=== PATIENT | female | born 1985 | race Caucasian/White ===

== ENCOUNTER 2017-10-26 05:32 | Inpatient (IN) | payer BC, OTHER ==
[2017-10-26] MEDS ORDERED: Meropenem 500 MG in Sodium Chloride 0.9% 50 ML IV ONE (06:00)
[2017-10-26] MEDS ORDERED: Acetaminophen 500 MG Tab PO ONE (06:00)
[2017-10-26] MEDS ORDERED: Dextrose 5%-Lactated Ringers 1,000 ML IV SCH (06:00)
[2017-10-26] MEDS ORDERED: Celecoxib 200 MG Cap PO ONE (06:00)
[2017-10-26] MEDS ORDERED: Bupivacaine 0.5%/EPINEPHrine 1:200,000 50 ML MDV ONE (06:56)
[2017-10-26] MEDS ORDERED: Albuterol/Ipratropium 3.0-0.5 MG/3 ML Neb Soln NEB ONE (07:00)
[2017-10-26] MEDS ORDERED: Glycopyrrolate 0.2 MG/ML 5 ML MDV ONE (07:01)
[2017-10-26] MEDS ORDERED: Succinylcholine 200 MG/10 ML MDV ONE (07:01)
[2017-10-26] MEDS ORDERED: Propofol 200 MG/20 ML SDV ONE (07:01)
[2017-10-26] MEDS ORDERED: Ondansetron 4 MG/2 ML SDV ONE (07:01)
[2017-10-26] MEDS ORDERED: Dexamethasone 4 MG/ML SDV ONE (07:01)
[2017-10-26] MEDS ORDERED: Neostigmine Methylsulfate 1 MG/ML 5 ML Syringe ONE (07:01)
[2017-10-26] MEDS ORDERED: Rocuronium 50 MG/5 ML Vial ONE (07:01)
[2017-10-26] MEDS ORDERED: HYDROmorphone/Normal Saline 15 MG/30 ML PCA IV PRN (07:44)
[2017-10-26] MEDS ORDERED: Naloxone 0.4 MG/ML SDV IV PRN (07:47)
[2017-10-26] MEDS ORDERED: Lactated Ringers 1,000 ML ONE (08:14)
[2017-10-26] MEDS ORDERED: Atropine 0.4 MG/ML SDV ONE (08:52)
[2017-10-26] MEDS ORDERED: hydrOXYzine HCl 100 MG/2 ML SDV IM ONE (09:08)
[2017-10-26] MEDS ORDERED: Albuterol/Ipratropium 3.0-0.5 MG/3 ML Neb Soln INH PRN (09:48)
[2017-10-26] MEDS ORDERED: Ondansetron 4 MG/2 ML SDV IV PRN (09:48)
[2017-10-26] MEDS ORDERED: hydrOXYzine HCl 100 MG/2 ML SDV IM PRN (09:50)
[2017-10-26] MEDS ORDERED: hydrOXYzine HCl 25 MG Tab PO PRN (09:50)
[2017-10-26] MEDS ORDERED: Ketorolac 60 MG/2 ML SDV IM ONE (10:00)
[2017-10-26] MEDS ORDERED: Cyclobenzaprine 10 MG Tab PO ONE (10:00)
[2017-10-26] MEDS: Albuterol/Ipratropium 3.0-0.5 MG/3 ML Neb Soln INH SCH ×3 (11:22→20:46)
[2017-10-26] MEDS: Dextrose 5%-Lactated Ringers 1,000 ML IV SCH ×2 (15:22→21:49)
[2017-10-26] MEDS: Meropenem 500 MG in Sodium Chloride 0.9% 50 ML IV SCH (16:05)
[2017-10-26] MEDS ORDERED: Benzocaine/Cetylpyridinium/Menthol Lozenge MUCMEM PRN (19:44)
[2017-10-26] MEDS: Bisacodyl 5 MG Tab PO SCH (20:40)
[2017-10-26] MEDS: Cyclobenzaprine 10 MG Tab PO PRN (21:49)
[2017-10-27] MEDS: Meropenem 500 MG in Sodium Chloride 0.9% 50 ML IV SCH ×3 (00:18→15:08)
[2017-10-27] MEDS: Dextrose 5%-Lactated Ringers 1,000 ML IV SCH (04:04)
[2017-10-27] MEDS: Cyclobenzaprine 10 MG Tab PO PRN ×3 (04:21→18:24)
[2017-10-27] MEDS: Albuterol/Ipratropium 3.0-0.5 MG/3 ML Neb Soln INH SCH ×4 (08:45→20:43)
[2017-10-27] MEDS ORDERED: Dextrose 5%-Lactated Ringers 1,000 ML IV SCH (09:00)
[2017-10-27] MEDS: Acetaminophen/oxyCODONE 325-5 MG Tab PO PRN ×3 (09:02→20:11)
[2017-10-27] MEDS: FLUoxetine 20 MG Cap PO SCH (09:04)
[2017-10-27] MEDS: Bisacodyl 5 MG Tab PO SCH ×2 (09:04→20:43)
[2017-10-27] MEDS: Enoxaparin 40 MG/0.4 ML Syringe SUBCUT SCH (09:06)
[2017-10-27] MEDS: ALLEGRA D PO SCH (10:59)
--- NOTE | 2017-10-27 15:12 | PCM.SURGPN ---
- General Info Date of Service: 10/27/17 Date of Surgery/Procedure: 10/26/17 POD#: 1 Post-Op Diagnosis: Appendicitis Functional Status: Reports: Pain Controlled, Tolerating Diet, Ambulating, Urinating, Incentive Spirometry - Review of Systems General: Reports: No Symptoms HEENT: Reports: No Symptoms Pulmonary: Reports: No Symptoms Cardiovascular: Reports: No Symptoms Gastrointestinal: Reports: Other (Diffuse cramping of upper and lower abdomen) Genitourinary: Reports: No Symptoms Musculoskeletal: Reports: No Symptoms Skin: Reports: No Symptoms Neurological: Reports: No Symptoms Psychiatric: Reports: No Symptoms - Patient Data Vitals - Most Recent: Last Vital Signs Temp 97.1 F 10/27/17 11:42 Pulse 78 10/27/17 11:46 Resp 18 10/27/17 11:42 BP 104/64 10/27/17 11:42 Pulse Ox 97 10/27/17 11:46 Weight - Most Recent: 143 lb 0.01 oz I&O - Last 24 Hours: Intake & Output 10/27/17 10/27/17 10/27/17 06:59 14:59 22:59 Intake Total 50 960 Output Total 925 1100 Balance -875 -140 Med Orders - Current: Current Medications Albuterol/Ipratropium (Duoneb 3.0-0.5 Mg/3 Ml) 3 ml INH QIDRT [facility] Last Admin: 10/27/17 15:06 Dose: 3 ml Albuterol/Ipratropium (Duoneb 3.0-0.5 Mg/3 Ml) 3 ml INH ASDIRECTED PRN PRN Reason: Shortness of Breath Benzocaine/Menthol (Cepacol Sore Throat) 1 lozenge MUCMEM Q1H PRN PRN Reason: Sore Throat Bisacodyl (Dulcolax) 10 mg PO BID [facility] Last Admin: 10/27/17 09:04 Dose: 10 mg Cyclobenzaprine HCl (Flexeril) 10 mg PO Q6H PRN PRN Reason: MUSCLE SPASM Last Admin: 10/27/17 11:49 Dose: 10 mg Enoxaparin Sodium (Lovenox) 40 mg SUBCUT DAILY [facility] Last Admin: 10/27/17 09:06 Dose: 40 mg Fluoxetine HCl (Prozac) 20 mg PO DAILY [facility] Last Admin: 10/27/17 09:04 Dose: 20 mg Hydroxyzine HCl (Vistaril) 50 mg IM Q4H PRN PRN Reason: PAIN Hydroxyzine HCl (Atarax) 100 mg PO Q4H PRN PRN Reason: PAIN Meropenem 500 mg/ Sodium (Chloride) 50 mls @ 100 mls/hr IV Q8H [facility] Last Admin: 10/27/17 09:02 Dose: 100 mls/hr Dextrose/Lactated Ringer's (Dextrose 5%-Lactated Ringers) 1,000 mls @ 100 mls/ hr IV ASDIRECTED [facility] Renee-D 24 Hour (Tablet (Ptom)) 0 tab PO DAILY [facility] Last Admin: 10/27/17 10:59 Dose: Not Given Ondansetron HCl (Zofran) 4 mg IV Q4H PRN PRN Reason: N/V Oxycodone/Acetaminophen (Percocet 325-5 Mg) 1 - 2 tab PO Q4H PRN PRN Reason: PAIN Last Admin: 10/27/17 09:02 Dose: 1 tab Senna/Docusate Sodium (Senna Plus) 2 tab PO BID [facility] Last Admin: 10/27/17 09:05 Dose: 2 tab Discontinued Medications Acetaminophen (Tylenol Extra Strength) 1,000 mg PO ONETIME ONE Stop: 10/26/17 06:01 Last Admin: 10/26/17 06:13 Dose: 1,000 mg Albuterol/Ipratropium (Duoneb 3.0-0.5 Mg/3 Ml) 3 ml NEB ONETIME ONE Stop: 10/26/17 07:01 Last Admin: 10/26/17 07:02 Dose: 3 ml Atropine Sulfate (Atropine) Confirm Administered Dose 0.4 mg .ROUTE .STK-MED ONE Stop: 10/26/17 08:53 Bupivacaine HCl/Epinephrine Bitart (Marcaine 0.5%/Epinephrine 1:200,000) Confirm Administered Dose 50 ml .ROUTE .STK-MED ONE Stop: 10/26/17 06:57 Last Admin: 10/26/17 09:12 Dose: 15 ml Celecoxib (Celebrex) 200 mg PO ONETIME ONE Stop: 10/26/17 06:01 Last Admin: 10/26/17 06:13 Dose: 200 mg Cyclobenzaprine HCl (Flexeril) 10 mg PO ONETIME ONE Stop: 10/26/17 10:01 Last Admin: 10/26/17 09:57 Dose: 10 mg Dexamethasone (Dexamethasone) Confirm Administered Dose 4 mg .ROUTE .STK-MED ONE Stop: 10/26/17 07:02 Fentanyl Citrate (Fentanyl) Confirm Administered Dose 500 mcg .ROUTE .STK-MED ONE Stop: 10/26/17 07:02 Glycopyrrolate (Robinul) Confirm Administered Dose 1 mg .ROUTE .STK-MED ONE Stop: 10/26/17 07:02 Hydromorphone HCl (Dilaudid Teacher Emotionally Impaired 15 Mg In Ns 30 Ml) 0 mg IV ASDIRECTED PRN; Protocol PRN Reason: Pain Last Admin: 10/26/17 07:59 Dose: 0.3 mg Hydroxyzine HCl (Vistaril) 0 mg IM ONETIME ONE Stop: 10/26/17 09:09 Last Admin: 10/26/17 09:13 Dose: 100 mg Dextrose/Lactated Ringer's (Dextrose 5%-Lactated Ringers) 1,000 mls @ 100 mls/ hr IV ASDIRECTED [facility] Last Admin: 10/26/17 07:02 Dose: 100 mls/hr Meropenem 500 mg/ Sodium (Chloride) 50 mls @ 100 mls/hr IV ONETIME ONE Stop: 10/26/17 06:29 Last Admin: 10/26/17 08:00 Dose: 100 mls/hr Lactated Ringer's (Ringers, Lactated) Confirm Administered Dose 1,000 mls @ as directed .ROUTE .STK-MED ONE Stop: 10/26/17 08:15 Dextrose/Lactated Ringer's (Dextrose 5%-Lactated Ringers) 1,000 mls @ 175 mls/ hr IV ASDIRECTED [facility] Last Admin: 10/27/17 04:04 Dose: 175 mls/hr Ketorolac Tromethamine (Toradol) 60 mg IM ONETIME ONE Stop: 10/26/17 10:01 Last Admin: 10/26/17 09:57 Dose: 60 mg Naloxone HCl (Narcan) 0.1 mg IV ASDIRECTED PRN PRN Reason: decreased respiratory rate Neostigmine Methylsulfate (Neostigmine) Confirm Administered Dose 5 mg .ROUTE .STK-MED ONE Stop: 10/26/17 07:02 Ondansetron HCl (Zofran) Confirm Administered Dose 4 mg .ROUTE .STK-MED ONE Stop: 10/26/17 07:02 Propofol (Diprivan 20 Ml) Confirm Administered Dose 200 mg .ROUTE .STK-MED ONE Stop: 10/26/17 07:02 Rocuronium Clymer (Zemuron) Confirm Administered Dose 50 mg .ROUTE .STK-MED ONE Stop: 10/26/17 07:02 Succinylcholine Chloride (Quelicin) Confirm Administered Dose 200 mg .ROUTE .STK -MED ONE Stop: 10/26/17 07:02 - Exam Wound/Incisions: Healing Well, Dressing Dry and Intact General: Alert, Oriented HEENT: Pupils Equal Neck: Supple Lungs: Clear to Auscultation, Normal Respiratory Effort Cardiovascular: Regular Rate, Regular Rhythm GI/Abdominal Exam: Other (slightly hypoactive bowel sounds) Extremities: Normal Inspection, Normal Range of Motion, Non-Tender, No Pedal Edema, Normal Capillary Refill Skin: Warm, Dry, Intact Neurological: No New Focal Deficit Psy/Mental Status: Alert, Normal Affect, Normal Mood - Problem List Review Problem List Initiated/Reviewed/Updated: Yes - My Orders Last 24 Hours: Active Orders 24 hr Category Date Time Status May Shower [RC] ASDIRECTED Care 10/27/17 08:33 Active Regular Diet [DIET] Diet 10/27/17 Breakfast Active Acetaminophen/oxyCODONE [Percocet 325-5 MG] Med 10/27/17 08:57 Active 1 - 2 tab PO Q4H PRN Benzocaine/Cetylpyrd/Menthol [Cepacol Sore Throat] Med 10/26/17 19:44 Active 1 lozenge MUCMEM Q1H PRN Bisacodyl [Dulcolax] Med 10/26/17 21:00 Active 10 mg PO BID Cyclobenzaprine [Flexeril] Med 10/26/17 16:00 Active 10 mg PO Q6H PRN Dextrose 5%-Lactated Ringers 1,000 ml Med 10/27/17 09:00 Active IV ASDIRECTED Enoxaparin [Lovenox] Med 10/27/17 09:00 Active 40 mg SUBCUT DAILY FLUoxetine [PROzac] Med 10/27/17 09:00 Active 20 mg PO DAILY Fexofenadine/Pseudoephedrine [Renee-D 24 Hour Tablet] Med 10/27/17 09:00 Active 0 tab PO DAILY Meropenem [Merrem] 500 mg Med 10/26/17 16:00 Active Sodium Chloride 0.9% [Normal Saline] 50 ml IV Q8H Medication Orders Albuterol/Ipratropium (Duoneb 3.0-0.5 Mg/3 Ml) 3 ml INH QIDRT [facility] Last Admin: 10/27/17 15:06 Dose: 3 ml Admin: 10/27/17 11:46 Dose: 3 ml Admin: 10/27/17 08:45 Dose: 3 ml Admin: 10/26/17 20:46 Dose: 3 ml Admin: 10/26/17 15:05 Dose: 3 ml Admin: 10/26/17 11:22 Dose: 3 ml Albuterol/Ipratropium (Duoneb 3.0-0.5 Mg/3 Ml) 3 ml INH ASDIRECTED PRN PRN Reason: Shortness of Breath Benzocaine/Menthol (Cepacol Sore Throat) 1 lozenge MUCMEM Q1H PRN PRN Reason: Sore Throat Bisacodyl (Dulcolax) 10 mg PO BID [facility] Last Admin: 10/27/17 09:04 Dose: 10 mg Admin: 10/26/17 20:40 Dose: 10 mg Cyclobenzaprine HCl (Flexeril) 10 mg PO Q6H PRN PRN Reason: MUSCLE SPASM Last Admin: 10/27/17 11:49 Dose: 10 mg Admin: 10/27/17 04:21 Dose: 10 mg Admin: 10/26/17 21:49 Dose: 10 mg Enoxaparin Sodium (Lovenox) 40 mg SUBCUT DAILY [facility] Last Admin: 10/27/17 09:06 Dose: 40 mg Fluoxetine HCl (Prozac) 20 mg PO DAILY [facility] Last Admin: 10/27/17 09:04 Dose: 20 mg Hydroxyzine HCl (Vistaril) 50 mg IM Q4H PRN PRN Reason: PAIN Hydroxyzine HCl (Atarax) 100 mg PO Q4H PRN PRN Reason: PAIN Meropenem 500 mg/ Sodium (Chloride) 50 mls @ 100 mls/hr IV Q8H [facility] Last Admin: 10/27/17 09:02 Dose: 100 mls/hr Admin: 10/27/17 00:18 Dose: 100 mls/hr Admin: 10/26/17 16:05 Dose: 100 mls/hr Dextrose/Lactated Ringer's (Dextrose 5%-Lactated Ringers) 1,000 mls @ 100 mls/ hr IV ASDIRECTED [facility] Renee-D 24 Hour (Tablet (Ptom)) 0 tab PO DAILY [facility] Last Admin: 10/27/17 10:59 Dose: Ondansetron HCl (Zofran) 4 mg IV Q4H PRN PRN Reason: N/V Oxycodone/Acetaminophen (Percocet 325-5 Mg) 1 - 2 tab PO Q4H PRN PRN Reason: PAIN Last Admin: 10/27/17 09:02 Dose: 1 tab Senna/Docusate Sodium (Senna Plus) 2 tab PO BID [facility] Last Admin: 10/27/17 09:05 Dose: 2 tab Admin: 10/26/17 20:40 Dose: 2 tab Admin: 10/26/17 15:21 Dose: 2 tab - Assessment Assessment (Free Text/Narrative):: 10/27/16 Georgette Roberts is a 31yo F POD#1 s/p laparoscopic appendectomy who is doing well today, aside from continued generalized abdominal cramping. Flexeril has been helping with this cramping. She is up and ambulating. Voiding well. Dressing dry and intact with binder on. Was transitioned to regular diet and oral percocet. She can get up and shower today. Expect discharge tomorrow. - Plan Plan (Free Text/Narrative):: -Pain management: switch from IV to oral Percocet -Diet: Change from full liquids to regular diet -Activity: continue ambulating, shower, use incentive spirometer -Abx prophylaxis: continue meropenem
[2017-10-28] MEDS: Meropenem 500 MG in Sodium Chloride 0.9% 50 ML IV SCH ×2 (00:45→07:49)
[2017-10-28] MEDS: Acetaminophen/oxyCODONE 325-5 MG Tab PO PRN ×3 (00:46→10:28)
[2017-10-28] MEDS: Cyclobenzaprine 10 MG Tab PO PRN ×2 (00:46→07:49)
[2017-10-28] MEDS: Albuterol/Ipratropium 3.0-0.5 MG/3 ML Neb Soln INH SCH (07:12)
[2017-10-28] MEDS: Enoxaparin 40 MG/0.4 ML Syringe SUBCUT SCH (09:09)
[2017-10-28] MEDS: FLUoxetine 20 MG Cap PO SCH (09:09)
[2017-10-28] MEDS: Bisacodyl 5 MG Tab PO SCH (09:09)
[2017-10-28] MEDS: ALLEGRA D PO SCH (09:26)
--- NOTE | 2017-10-29 14:14 | PN ---
DATE OF SERVICE: 10/27/2017 The patient has been afebrile with stable vital signs. She is complaining of some cramping in the musculature on the abdominal wall, otherwise, is doing well. No nausea or vomiting overnight. The plan will be to switch her to oral pain medication today, go up to a regular diet, continue the antibiotics, and work on getting the bowels going. She will be able to shower p.r.n. Bashir Manley MD /[id number]
--- NOTE | 2017-10-29 14:23 | DISCH ---
FINAL DIAGNOSES: 1. Subacute appendicitis with inflammatory adherence to base of cecum. 2. History of asthma. OPERATIVE PROCEDURE: Diagnostic laparoscopy with excision of the base of the cecum along with overlying appendix, that was on 10/26/2017. SUMMARY: The patient presents after being seen in [facility] after returning from [facility] and diagnosed with acute appendicitis. The initial plan was to treat her nonoperatively with oral antibiotics. There was some fluid around the appendix at the time, but this was drained. She presents now with more of a smoldering picture with continued abdominal distention and discomfort in the right lower quadrant. At this point, wished to undergo definitive surgical procedure. On the day of admission, the appendectomy was accomplished. The base of the cecum was densely adherent to the appendix and this was excised along with the overlying appendix to provide a more satisfactory staple line. Postoperatively, she is passing some gas. At this point, still mildly distended, but is tolerating the diet. She will be sent home with instructions to finish off her antibiotics that had been started at [facility] and she thinks, has a few Percocet left from that hospitalization. We will give her 40 additional of Percocet 5/325 to take 1 to 2 tablets q.4 hours p.r.n., was also taking some Flexeril 10 mg p.o. q.6 hours p.r.n. for muscle spasm, #30 with one refill and Dulcolax oral tablets and senna on a scheduled basis until bowels get moving. She should be following up with Dr. Manley at [facility] on 11/04/2017.
--- NOTE | 2017-10-30 14:45 | OR ---
DATE OF PROCEDURE: 10/26/2017 PREOPERATIVE DIAGNOSIS: Subacute appendicitis. POSTOPERATIVE DIAGNOSIS: Subacute appendicitis with inflammatory adherence to the base of cecum. OPERATIVE PROCEDURE: Diagnostic laparoscopy with excision of base of cecum, along with overlying appendix ([id number]). ANESTHESIA: General. PAINTER HELPER: Alejandra Jefferson MS-3. INDICATION FOR PROCEDURE: The patient recently returned from [facility] and was admitted at [facility] for acute appendicitis with periappendiceal fluid collection, where she was treated nonoperatively without intervention in terms of the fluid as well. She continues to have smoldering discomfort, clinically probably a degree of ileus with her abdomen being quite bloated and remaining somewhat tender in the right lower quadrant. Given this, at this point, the patient would like to proceed with an appendectomy and drainage of fluid or abscess as indicated. Potential risks including bleeding, infection, injury to underlying viscera, possible leaks from GI tract closures were reviewed, and the patient wishes to proceed. DETAILS OF PROCEDURE: The patient was taken to the operating room, and after general endotracheal anesthesia was induced, a George catheter was inserted and the abdomen prepped and draped. Three fingerbreadths superior and to the left of the umbilicus, a transverse incision was made and peritoneal cavity entered under direct vision with an Optiview trocar. The peritoneal cavity was inflated to 15 mmHg pressure with CO2 and laparoscope reinserted. No underlying trocar insertion site injuries were seen. Following this, a 12-mm trocar was placed in the left lower quadrant, as well as in the right upper quadrant, and the lower abdomen examined. The patient was noted to have an appendix which was entirely covered with peritoneum which was visible, other than for the very tip, which extended rightwards along the side of the cecum. At this point, there was not any evident periappendiceal fluid collection. The appendix itself had subacute inflammation in appearance but it did not show signs of perforation. The appendix was then freed up of the peritoneal attachments beginning at its tip, using Harmonic scalpel. As this was dissected down, the appendiceal artery and its branches were divided with Harmonic scalpel as well. As one approached the cecum, which was densely adherent in that area and it was felt that heat injury to the cecum would be such that, if the appendectomy alone were accomplished, there might be a weakened staple line at the cecum. Given this, the base of the cecum was mobilized upward and then excised with a AGA purple load, with removal of the specimen containing the base of cecum and appendix through the left lower trocar site. The area of dissection was inspected. The staple line was reinforced with some fibrin sealant, and no drains were felt to be necessary. The trocars were sequentially removed and the fascia closed with 0 Vicryl stitch and skin with a 4-0 Vicryl skin stitch. Dressing was applied. The patient was taken to the recovery room in satisfactory condition. There were no evident complications. Bashir Manley MD /[id number]
== END 2017-10-28 12:15 | disposition home or self-care (01) | DRG 343 ==
LOC: JP.SDSSCHI 05:32 → JP.SDS 05:32 → UNDOADMIN 08:35 → JP.2SS 08:35 → JP.SDSSCHI 08:35 → EDSTATUS 13:30
PROVIDERS: ADMIT Surgery; ATTEND Surgery
PROC: 0DTJ4ZZ Resection of Appendix, Percutaneous Endoscopic Approach (ICD-10-PCS; principal; 2017-10-26)
PROC: 0DBH4ZX Excision of Cecum, Percutaneous Endoscopic Approach, Diagnostic (ICD-10-PCS; 2017-10-26)
DX: K35.89 Other acute appendicitis (principal); J45.909 Unspecified asthma, uncomplicated
CPT/HCPCS: 36415; 80053; 81025; 83735; 84100; 85027; 88304; 94640; 94762; A9270-GY; J0330; J0461; J1100; J1170; J1650; J1885; J2185; J2405; J2704; J2710; J3010; J3410; J7042; J7050; J7120; J7620

== ENCOUNTER 2020-09-02 19:40 | Emergency (ER) | payer BC, OTHER ==
--- NOTE | 2020-09-02 20:18 | EDM.PDOC ---
ED HPI GENERAL MEDICAL PROBLEM - General Chief Complaint: Abdominal Pain Stated Complaint: LOWER L ABDOMINAL PAIN Time Seen by Provider: 09/02/20 20:02 Source of Information: Reports: Patient, Family, RN Notes Reviewed History Limitations: Reports: No Limitations - History of Present Illness INITIAL COMMENTS - FREE TEXT/NARRATIVE: 34-year-old female presents emergency department a complaint of abdominal pain, she estimates she is about 6 weeks intrauterine she is a G1, P0 she states she has had left lower quadrant pain for the last couple of weeks some nausea pain definitely changes with food can be intense but then will wax and wane no fevers no vaginal bleeding no discharge Right Lower Abdomen Pain Score (Numeric/FACES): 3 - Related Data Allergies Allergy/AdvReac Type Severity Reaction Status Date / Time No Known Allergies Allergy Verified 10/23/17 10:41 Home Meds: Home Meds Albuterol [IJD: Ventolin HFA] 1 - 2 puff INH ASDIRECTED PRN 10/23/17 [History] Dicyclomine [Bentyl] 20 mg PO TID PRN 10/23/17 [History] FLUoxetine [PROzac] 20 mg PO DAILY 10/23/17 [History] Fexofenadine/Pseudoephedrine [Renee-D 24 Hour Tablet] 1 tab PO DAILY 10/23/17 [History] Past Medical History HEENT History: Reports: Impaired Vision, Sinusitis Other HEENT History: wears glasses Cardiovascular History: Reports: SOB on Exertion Respiratory History: Reports: Other (See Below) Other Respiratory History: exercise induced asthma 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: Musculoskeletal History: Reports: RA - Infectious Disease History Infectious Disease History: Reports: Chicken Pox - Past Surgical History HEENT Surgical History: Reports: Oral Surgery Cardiovascular Surgical History: Reports: None Respiratory Surgical History: Reports: None GI Surgical History: Reports: Appendectomy Dermatological Surgical History: Reports: None Social & Family History - Family History Cardiac: Reports: Heart Failure, Hypertension Neurological: Reports: Dementia Psychiatric: Reports: Depression Endocrine/Metabolic: Reports: Diabetes, type II Oncologic: Reports: Colon, Lung - Tobacco Use Tobacco Use Status *Q: Never Tobacco User - Caffeine Use Caffeine Use: Reports: Soda - Recreational Drug Use Recreational Drug Use: No ED ROS GENERAL - Review of Systems Review Of Systems: See Below Constitutional: Reports: No Symptoms HEENT: Reports: No Symptoms Respiratory: Reports: No Symptoms Cardiovascular: Reports: No Symptoms GI/Abdominal: Reports: Abdominal Pain, Nausea. Denies: Vomiting : Reports: No Symptoms ED EXAM - Physical Exam Exam: See Below Exam Limited By: No Limitations General Appearance: Alert, WD/WN, No Apparent Distress Respiratory/Chest: No Respiratory Distress GI/Abdominal Exam: Soft, Non-Tender Course - Vital Signs Last Recorded V/S: Last Vital Signs Temp 96.1 F L 09/02/20 19:52 Pulse 82 09/02/20 19:52 Resp 16 09/02/20 19:52 BP 125/78 09/02/20 19:52 Pulse Ox 98 09/02/20 19:52 - Orders/Labs/Meds Orders: Active Orders 24 hr Category Date Time Status OB 1st Tri Sgl 1st Gest [US] Stat Exams 09/02/20 21:20 Taken Labs: Laboratory Tests 09/02/20 09/02/20 09/02/20 Range/Units 20:18 20:28 20:28 WBC 10.5 (4.5-11.0) K/uL RBC 4.30 (3.30-5.50) M/uL Hgb 11.7 L (12.0-15.0) g/dL Hct 36.4 (36.0-48.0) % MCV 85 (80-98) fL MCH 27 (27-31) pg MCHC 32 (32-36) % Plt Count 327 (150-400) K/uL Neut % (Auto) 76 H (36-66) % Lymph % (Auto) 14 L (24-44) % Cavalier % (Auto) 9 H (2-6) % Eos % (Auto) 1 L (2-4) % Baso % (Auto) 0 (0-1) % Sodium (140-148) mmol/L Potassium (3.6-5.2) mmol/L Chloride (100-108) mmol/L Carbon Dioxide (21-32) mmol/L Anion Gap (5.0-14.0) mmol/L BUN (7-18) mg/dL Creatinine (0.6-1.0) mg/dL Est Cr Clr Drug Dosing mL/min Estimated GFR (MDRD) (>60) Glucose (74-106) mg/dL Calcium (8.5-10.1) mg/dL HCG, Quant 58510 H (0-6) mIU/mL Urine Color Yellow (YELLOW) Urine Appearance Clear (CLEAR) Urine pH 5.5 (5.0-8.0) Ur Specific [place] 1.010 (1.008-1.030) Urine Protein Negative (NEGATIVE) mg/dL Urine Glucose (UA) Negative (NEGATIVE) mg/dL Urine Ketones Negative (NEGATIVE) mg/dL Urine Occult Blood Negative (NEGATIVE) Urine Nitrite Negative (NEGATIVE) Urine Bilirubin Negative (NEGATIVE) Urine Urobilinogen 0.2 (0.2-1.0) EU/dL Ur Leukocyte Esterase Negative (NEGATIVE) Urine RBC Not seen (0-5) Urine WBC Not seen (0-5) Ur Epithelial Cells Not seen Urine Bacteria Not seen 09/02/20 Range/Units 20:28 WBC (4.5-11.0) K/uL RBC (3.30-5.50) M/uL Hgb (12.0-15.0) g/dL Hct (36.0-48.0) % MCV (80-98) fL MCH (27-31) pg MCHC (32-36) % Plt Count (150-400) K/uL Neut % (Auto) (36-66) % Lymph % (Auto) (24-44) % Cavalier % (Auto) (2-6) % Eos % (Auto) (2-4) % Baso % (Auto) (0-1) % Sodium 135 L (140-148) mmol/L Potassium 3.8 (3.6-5.2) mmol/L Chloride 102 (100-108) mmol/L Carbon Dioxide 23 (21-32) mmol/L Anion Gap 13.8 (5.0-14.0) mmol/L BUN 10 (7-18) mg/dL Creatinine 0.9 (0.6-1.0) mg/dL Est Cr Clr Drug Dosing 92.91 mL/min Estimated GFR (MDRD) > 60 (>60) Glucose 84 (74-106) mg/dL Calcium 9.0 (8.5-10.1) mg/dL HCG, Quant (0-6) mIU/mL Urine Color (YELLOW) Urine Appearance (CLEAR) Urine pH (5.0-8.0) Ur Specific [place] (1.008-1.030) Urine Protein (NEGATIVE) mg/dL Urine Glucose (UA) (NEGATIVE) mg/dL Urine Ketones (NEGATIVE) mg/dL Urine Occult Blood (NEGATIVE) Urine Nitrite (NEGATIVE) Urine Bilirubin (NEGATIVE) Urine Urobilinogen (0.2-1.0) EU/dL Ur Leukocyte Esterase (NEGATIVE) Urine RBC (0-5) Urine WBC (0-5) Ur Epithelial Cells Urine Bacteria Departure - Departure Time of Disposition: 22:46 Disposition: Home, Self-Care 01 Condition: Fair Clinical Impression: Intrauterine - Discharge Information Instructions: Care Referrals: Deborah Walters CNM [Primary Care Provider] - Forms: ED Department Discharge Additional Instructions: Continue with your vitamins, try stool softeners keep your follow-up appointments with your OB return to the emergency department worsening of condition Sepsis Event Note (ED) - Evaluation Sepsis Screening Result: No Definite Risk - Focused Exam Vital Signs: Vital Signs Temp Pulse Resp BP Pulse Ox 09/02/20 19:52 96.1 F L 82 16 125/78 98 - My Orders Last 24 Hours: My Active Orders 09/02/20 21:20 OB 1st Tri Sgl 1st Gest [US] Stat - Assessment/Plan Last 24 Hours: My Active Orders 09/02/20 21:20 OB 1st Tri Sgl 1st Gest [US] Stat Plan: Assessment Acuity = acute Site and laterality = 6 weeks 4 days intrauterine Etiology = normal Manifestations = none Location of injury = Home Lab values = CBC, BMP within normal limits urinalysis unremarkable Plan Ultrasound did note large amount of stool left lower quadrant area probably related to pain plan is discharged home she has vitamins will follow up with her OB This note was dictated using [employer] voice recognition software please call with any questions on syntax or grammar.
--- NOTE | 2020-09-03 10:01 | US ---
INDICATION: LLQ pain COMPARISON: None FINDINGS: There is a gestational sac within the endometrial cavity. There is a pole. Single live IUP at 6 weeks 4 days based on a crown-rump length of 0.6 cm heart rate: 135 BPM. ADD is 04/24/2021 There is a yolk sac measuring 3 mm Other findings: No free fluid or adnexal mass is seen IMPRESSION: Single live IUP at 6 weeks 4 days MCKENZIE is 04/24/2021
== END 2020-09-02 23:00 | disposition home or self-care (01) ==
LOC: JP.ED 19:40
DX: O99.891 Other specified diseases and conditions complicating pregnancy (principal); R10.31 Right lower quadrant pain; R10.32 Left lower quadrant pain; R11.0 Nausea; Z3A.01 Less than 8 weeks gestation of pregnancy
CPT/HCPCS: 36415; 76801; 76801-26; 80048; 81001; 84702; 85025; 99284-25

== ENCOUNTER 2021-04-12 06:27 | Inpatient (IN) | payer BC ==
[2021-04-12] MEDS ORDERED: Ondansetron 4 MG/2 ML SDV IV PRN (08:11)
[2021-04-12] MEDS ORDERED: Acetaminophen 325 MG Tab PO PRN (08:11)
[2021-04-12] MEDS ORDERED: Sodium Chloride 0.9% 10 ML Syringe FLUSH PRN ×2 (08:11→16:39)
[2021-04-12] MEDS ORDERED: Penicillin G Potassium 5 MILLUNITS in Sodium Chloride 0.9% 100 ML IV ONE (08:30)
--- NOTE | 2021-04-12 09:16 | PCM.LDHP ---
L&D History of Present Illness - General Date of Service: 04/12/21 Admit Problem/Dx: Patient Status Order with Admit Dx/Problem 04/12/21 08:11 Patient Status [ADT] Routine Admission Diagnosis/Problem Admission Diagnosis/Problem - Related Data Allergies/Adverse Reactions: Allergies Allergy/AdvReac Type Severity Reaction Status Date / Time No Known Allergies Allergy Verified 04/12/21 08:45 Home Medications: Home Meds Albuterol [IJD: Ventolin HFA] 1 - 2 puff INH ASDIRECTED PRN 10/23/17 [History] Dicyclomine [Bentyl] 20 mg PO TID PRN 10/23/17 [History] FLUoxetine [PROzac] 20 mg PO DAILY 10/23/17 [History] Fexofenadine/Pseudoephedrine [Renee-D 24 Hour Tablet] 1 tab PO DAILY 10/23/17 [History] Ferrous Sulfate [Iron] 325 mg PO DAILY 04/07/21 [History] Pnv No.103/Folic/Om3s/Fish Oil [ Gummies] 1 tab PO DAILY 04/07/21 [History] Past Medical History HEENT History: Reports: Impaired Vision, Sinusitis Other HEENT History: wears glasses Cardiovascular History: Reports: SOB on Exertion Respiratory History: Reports: Other (See Below) Other Respiratory History: exercise induced asthma [employer] History: Reports: Musculoskeletal History: Reports: RA Hematologic History: Reports: Anemia - Infectious Disease History Infectious Disease History: Reports: Chicken Pox, Meningitis - Past Surgical History HEENT Surgical History: Reports: Oral Surgery Cardiovascular Surgical History: Reports: None Respiratory Surgical History: Reports: None GI Surgical History: Reports: Appendectomy Dermatological Surgical History: Reports: None Social & Family History - Family History Family Medical History: No Pertinent Family History Cardiac: Reports: Heart Failure, Hypertension Neurological: Reports: Dementia Psychiatric: Reports: Depression Endocrine/Metabolic: Reports: Diabetes, type II Oncologic: Reports: Colon, Lung - Tobacco Use Tobacco Use Status *Q: Never Tobacco User - Caffeine Use Caffeine Use: Reports: None - Recreational Drug Use Recreational Drug Use: No H&P Review of Systems - Review of Systems: Review Of Systems: See Below General: Reports: No Symptoms HEENT: Reports: No Symptoms Pulmonary: Reports: No Symptoms Cardiovascular: Reports: No Symptoms Gastrointestinal: Reports: No Symptoms Genitourinary: Reports: No Symptoms Musculoskeletal: Reports: No Symptoms Skin: Reports: No Symptoms Psychiatric: Reports: No Symptoms Neurological: Reports: No Symptoms Hematologic/Lymphatic: Reports: No Symptoms Immunologic: Reports: No Symptoms L&D Exam - Exam Exam: See Below - Vital Signs Vital Signs: Last Vital Signs Temp 36.3 C 04/12/21 07:00 Pulse 99 04/12/21 07:00 Resp 16 04/12/21 07:00 BP 112/77 04/12/21 07:00 Pulse Ox 99 04/12/21 07:00 Weight: 82.554 kg - OB Specific Contraction Duration (sec): 80-110 Contraction Frequency (min): 2-5 Contraction Intensity: Mild Movement: Active Heart Tones: Present Presentation: Vertex - Whitfield Score Whitfield Score Cervix Position: Midposition Whitfield Score Consistency: Soft Whitfield Score Effacement: >80% Whitfield Score Dilation: 1-2 cm Whitfield Score 's Station: -2 Whitfield Score Total: 8 - Exam General: Alert, Oriented, Cooperative HEENT: PERRLA, Conjunctiva Clear, EACs Clear, EOMI, Hearing Intact, Mucosa Moist & Metter, Nares Patent, Normal Nasal Septum, Posterior Pharynx Clear, TMs Clear Neck: Supple, Trachea Midline Lungs: Clear to Auscultation, Normal Respiratory Effort Cardiovascular: Regular Rate, Regular Rhythm GI/Abdominal Exam: Normal Bowel Sounds, Soft, Non-Tender, No Organomegaly, No Distention, No Abnormal Bruit, No Mass, Pelvis Stable Rectal Exam: Normal Exam, Normal Rectal Tone Genitourinary: Normal external exam, Normal bimanual exam, Normal speculum exam, Cervical dilitation Back Exam: Normal Inspection, Full Range of Motion Extremities: Normal Inspection, Normal Range of Motion, Non-Tender, No Pedal Edema, Normal Capillary Refill Skin: Warm, Dry, Intact Neurological: Cranial Nerves Intact, Reflexes Equal Bilateral Psychiatric: Alert, Normal Affect, Normal Mood - Patient Data Lab Results Last 24 hrs: Laboratory Results - last 24 hr 04/12/21 04/12/21 04/12/21 Range/Units 06:36 06:36 08:11 WBC 10.9 (4.5-11.0) K/uL RBC 4.13 (3.30-5.50) M/uL Hgb 12.2 (12.0-15.0) g/dL Hct 36.6 (36.0-48.0) % MCV 89 (80-98) fL MCH 30 (27-31) pg MCHC 33 (32-36) % Plt Count 197 (150-400) K/uL Neut % (Auto) 78.9 H (36-66) % Lymph % (Auto) 12.7 L (24-44) % Charles % (Auto) 7.2 H (2-6) % Eos % (Auto) 0.6 L (2-4) % Baso % (Auto) 0.6 (0-1) % Urine Color Yellow (YELLOW) Urine Appearance Clear (CLEAR) Urine pH 5.5 (5.0-8.0) Ur Specific [place] 1.015 (1.008-1.030) Urine Protein Negative (NEGATIVE) mg/dL Urine Glucose (UA) Negative (NEGATIVE) mg/dL Urine Ketones Negative (NEGATIVE) mg/dL Urine Occult Blood Moderate H (NEGATIVE) Urine Nitrite Negative (NEGATIVE) Urine Bilirubin Negative (NEGATIVE) Urine Urobilinogen 0.2 (0.2-1.0) EU/dL Ur Leukocyte Esterase Negative (NEGATIVE) Urine RBC 0-5 (0-5) Urine WBC 0-5 (0-5) Ur Epithelial Cells Moderate Amorphous Sediment Not seen Urine Bacteria Rare Urine Mucus Not seen Membrane Rupture Positive H (NEGATIVE) Result Diagrams: 04/12/21 08:11 - Problem List (1) SNOMED Code(s): 53972226 ICD Code: Z34.90 - ENCNTR FOR SUPRVSN OF NORMAL , UNSP, UNSP TRIMESTER Status: Acute Current Visit: Yes Qualifiers: Weeks of gestation: 38 weeks Qualified Code(s): Z3A.38 - 38 weeks gestation of (2) SROM (spontaneous rupture of membranes) SNOMED Code(s): 177225643 ICD Code: AEB3776 - Status: Acute Current Visit: Yes (3) Positive GBS test SNOMED Code(s): 038488433, 686687665 ICD Code: B95.1 - STREPTOCOCCUS, GROUP B, CAUSING DISEASES CLASSD ELSWHR Status: Acute Current Visit: Yes (4) Raynaud's phenomenon (by history or observed) SNOMED Code(s): 598224315 ICD Code: I73.00 - RAYNAUD'S SYNDROME WITHOUT GANGRENE Status: Chronic Current Visit: No Problem List Initiated/Reviewed/Updated: Yes Orders Last 24hrs: Active Orders 24 hr Category Date Time Status Patient Status [ADT] Routine ADT 04/12/21 08:11 Active Ambulate [RC] PER UNIT ROUTINE Care 04/12/21 08:11 Active Communication Order [RC] ASDIRECTED Care 04/12/21 08:11 Active Non Stress Test [RC] Click to Edit Care 04/12/21 08:11 Active May Shower [RC] ASDIRECTED Care 04/12/21 08:11 Active Notify Provider Vital Signs [RC] PRN Care 04/12/21 08:11 Active Notify Provider [RC] PRN Care 04/12/21 08:11 Active OB Check [OM.PC] Click To Edit Care 04/12/21 06:36 Ordered Up ad Jerry [RC] ASDIRECTED Care 04/12/21 08:11 Active VTE/DVT Education [RC] Click to Edit Care 04/12/21 08:14 Active Vital Signs [RC] PER UNIT ROUTINE Care 04/12/21 08:11 Active Acetaminophen [TylenoL] Med 04/12/21 08:11 Active 650 mg PO Q4H PRN Ondansetron [Zofran] Med 04/12/21 08:11 Active 4 mg IV Q4H PRN Oxytocin/Normal Saline [Pitocin in NS 20 Units/1,000 ML Med 04/12/21 08:30 Active ] 20 unit in 1,000 ml IV TITRATE Penicillin G Potassium [Pfizerpen] 2.5 millunits Med 04/12/21 12:30 Active Sodium Chloride 0.9% [Normal Saline] 50 ml IV Q4H Penicillin G Potassium [Pfizerpen] 5 millunits Med 04/12/21 08:30 Active Sodium Chloride 0.9% [Normal Saline] 100 ml IV ONETIME Sodium Chloride 0.9% [Saline Flush] Med 04/12/21 08:11 Active 10 ml FLUSH ASDIRECTED PRN DVT/VTE Prophylaxis Reflex [OM.PC] Routine Oth 04/12/21 08:11 Ordered Saline Lock Insert [OM.PC] Routine Oth 04/12/21 08:11 Ordered Resuscitation Status Routine Resus Stat 04/12/21 08:11 Ordered Medication Orders Acetaminophen (Acetaminophen 325 Mg Tab) 650 mg PO Q4H PRN PRN Reason: Pain (Mild 1-3) and fever Penicillin G Potassium 5 (millunits/ Sodium Chloride) 100 mls @ 100 mls/hr IV O NETIME ONE Stop: 04/12/21 09:29 Last Admin: 04/12/21 08:33 Dose: 100 mls/hr Documented by: IESHA Oxytocin/Sodium Chloride (Pitocin In Ns 20 Units/1,000 Ml) 20 unit in 1,000 mls @ 6 mls/hr IV TITRATE OTNNY; Protocol Penicillin G Potassium 2.5 (millunits/ Sodium Chloride) 50 mls @ 100 mls/hr IV Q4H TONNY Ondansetron HCl (Ondansetron 4 Mg/2 Ml Sdv) 4 mg IV Q4H PRN PRN Reason: Nausea/Vomiting Sodium Chloride (Sodium Chloride 0.9% 10 Ml Syringe) 10 ml FLUSH ASDIRECTED PRN PRN Reason: Keep Vein Open Assessment/Plan Comment:: 04/12/2021 35 yo here at 38 2/7 gestational weeks with SROM at 0400 on 04/12/2021 Labs-A positive, Hep B neg, Hep C neg, HIV neg, RPR nonreactive, Rubella Immune, GBS positive SVE-2/80/-2 FHT category one Contractions every 2-5 on admit, increasing now Amnisure positive at bedside and supportive Plan- Monitor labor Monitor FHTs Patient may be up ad jerry Patient may tub Patient may eat a regular diet PCN G for GBS positive status Pain control per patient request If no change will augment with Pitocin Plan and anticipate a vaginal delivery
--- NOTE | 2021-04-12 12:29 | PCM.PNLD ---
Labor Progress Note - VS & Meds Vital Signs: Last Vital Signs Temp 36.4 C 04/12/21 10:30 Pulse 86 04/12/21 10:30 Resp 16 04/12/21 10:30 BP 110/74 04/12/21 10:30 Pulse Ox 99 04/12/21 10:30 Active Medications: Current Medications Acetaminophen (Acetaminophen 325 Mg Tab) 650 mg PO Q4H PRN PRN Reason: Pain (Mild 1-3) and fever Oxytocin/Sodium Chloride (Pitocin In Ns 20 Units/1,000 Ml) 20 unit in 1,000 mls @ 6 mls/hr IV TITRATE TONNY; Protocol Last Titration: 04/12/21 11:18 Dose: 3 munits/min, 9 mls/hr Documented by: Penicillin G Potassium 2.5 (millunits/ Sodium Chloride) 50 mls @ 100 mls/hr IV Q4H TONNY Ondansetron HCl (Ondansetron 4 Mg/2 Ml Sdv) 4 mg IV Q4H PRN PRN Reason: Nausea/Vomiting Sodium Chloride (Sodium Chloride 0.9% 10 Ml Syringe) 10 ml FLUSH ASDIRECTED PRN PRN Reason: Keep Vein Open Discontinued Medications Penicillin G Potassium 5 (millunits/ Sodium Chloride) 100 mls @ 100 mls/hr IV ONETIME ONE Stop: 04/12/21 09:29 Last Admin: 04/12/21 08:33 Dose: 100 mls/hr Documented by: - Uterine Contractions Uterine Monitoring Mode: External [place]. [place] Colon Contraction Frequency (min): 2-5 Contraction Duration (sec): 70-110 Contraction Intensity: Mild to Moderate - Monitoring Monitor Mode: External Ultrasound Heart Rate (FHR) Variability: Moderate (6-25 bmp) Accelerations: Present, 15x15 Decelerations: None Strip Review: Category I - Vaginal Exam Dilation (cm): 2 Effacement (Percent): 90 Station: 0 Cervical Position: Midposition Sterile Vaginal Exam Performed By: Ina Grimm - Labor Progress (Free Text) Labor Progress: 04/12/2021 Patient starting to feel contractions more SVE-3/90/-1-0 FHTs category one Contractions every 2-5 minutes Pitocin running per protocol PCN every four hours per protocol at bedside and supportive Patient managing pain with position change and breathing Plan Continue to monitor labor Continue to monitor FHTs Continue pitocin per protocol Continue PCN per protocol for GBS Pain management per patient request Plan and anticipate a vaginal delivery
[2021-04-12] MEDS: Penicillin G Potassium 2.5 MILLUNITS in Sodium Chloride 0.9% 50 ML IV SCH ×3 (12:34→19:56)
[2021-04-12] MEDS ORDERED: fentaNYL 100 MCG/2 ML SDV IVPUSH ONE (12:48)
[2021-04-12] MEDS ORDERED: Lactated Ringers 1,000 ML IV ONE (16:39)
[2021-04-12] MEDS ORDERED: ePHEDrine 50 MG/ML SDV IVPUSH PRN ×2 (16:39)
[2021-04-12] MEDS ORDERED: diphenhydrAMINE 50 MG/ML SDV IVPUSH PRN ×2 (16:39)
[2021-04-12] MEDS ORDERED: Naloxone 0.4 MG/ML SDV IVPUSH PRN (16:39)
[2021-04-12] MEDS ORDERED: Ropivacaine 200 MG in Premix Bag 1 BAG EPIDUR SCH (16:45)
--- NOTE | 2021-04-12 16:51 | PCM.PNLD ---
Labor Progress Note - VS & Meds Vital Signs: Last Vital Signs Temp 36.4 C 04/12/21 10:30 Pulse 86 04/12/21 10:30 Resp 16 04/12/21 10:30 BP 110/74 04/12/21 10:30 Pulse Ox 99 04/12/21 10:30 Active Medications: Current Medications Acetaminophen (Acetaminophen 325 Mg Tab) 650 mg PO Q4H PRN PRN Reason: Pain (Mild 1-3) and fever Diphenhydramine HCl (Diphenhydramine 50 Mg/Ml Sdv) 25 mg IVPUSH Q6H PRN PRN Reason: Itching Diphenhydramine HCl (Diphenhydramine 50 Mg/Ml Sdv) 50 mg IVPUSH Q6H PRN PRN Reason: Itching Ephedrine Sulfate (Ephedrine 50 Mg/Ml Sdv) 10 mg IVPUSH ASDIRECTED PRN PRN Reason: Hypotension Oxytocin/Sodium Chloride (Pitocin In Ns 20 Units/1,000 Ml) 20 unit in 1,000 mls @ 6 mls/hr IV TITRATE TONNY; Protocol Last Titration: 04/12/21 16:01 Dose: 6 munits/min, 18 mls/hr Documented by: Penicillin G Potassium 2.5 (millunits/ Sodium Chloride) 50 mls @ 100 mls/hr IV Q4H [facility] Last Admin: 04/12/21 16:18 Dose: 100 mls/hr Documented by: Ropivacaine 200 mg/ Premix 100 mls @ 0 mls/hr EPIDUR ASDIRECTED TONNY Lactated Ringer's (Ringers, Lactated) 1,000 mls @ 999 mls/hr IV .BOLUS ONE Stop: 04/12/21 17:39 Naloxone HCl (Naloxone 0.4 Mg/Ml Sdv) 0.1 mg IVPUSH ASDIRECTED PRN PRN Reason: Oversedation Ondansetron HCl (Ondansetron 4 Mg/2 Ml Sdv) 4 mg IV Q4H PRN PRN Reason: Nausea/Vomiting Sodium Chloride (Sodium Chloride 0.9% 10 Ml Syringe) 10 ml FLUSH ASDIRECTED PRN PRN Reason: Keep Vein Open Discontinued Medications Fentanyl (Fentanyl 100 Mcg/2 Ml Sdv) 100 mcg IVPUSH ONETIME ONE Stop: 04/12/21 12:49 Last Admin: 04/12/21 12:55 Dose: 100 mcg Documented by: Penicillin G Potassium 5 (millunits/ Sodium Chloride) 100 mls @ 100 mls/hr IV ONETIME ONE Stop: 04/12/21 09:29 Last Admin: 04/12/21 08:33 Dose: 100 mls/hr Documented by: - Uterine Contractions Uterine Monitoring Mode: External [place] Contraction Frequency (min): 2-6 Contraction Duration (sec): 70 Contraction Intensity: Moderate Uterine Resting Tone: Soft - Monitoring Monitor Mode: External Ultrasound Heart Rate (FHR) Variability: Moderate (6-25 bmp) Accelerations: Present, 15x15 Decelerations: None Strip Review: Category I - Vaginal Exam Dilation (cm): 3 Effacement (Percent): 90 Station: 0 Cervical Position: Midposition Sterile Vaginal Exam Performed By: Ina Grimm - Labor Progress (Free Text) Labor Progress: 04/12/2021 Patient is now more uncomfortable with contractions She has been in tub, also had one dose of IV pain medication Patient now desires a epidural SVE-/0--1, head movement noted with finger presentation at times but they do move away FHTs category one Contractions more regular on Pitocin at bedside and supportive Plan- Continue to monitor labor Continue to monitor FHTs Epidural for pain relief Pitocin per protocol PCN G per protocol Plan and anticipate a vaginal delivery
[2021-04-12] MEDS ORDERED: Ropivacaine 100 ML ONE (17:02)
--- NOTE | 2021-04-12 19:55 | PCM.PNLD ---
Labor Progress Note - VS & Meds Vital Signs: Last Vital Signs Temp 36.0 C L 04/12/21 16:15 Pulse 82 04/12/21 18:00 Resp 16 04/12/21 18:00 BP 111/69 04/12/21 18:00 Pulse Ox 100 04/12/21 18:00 Active Medications: Current Medications Acetaminophen (Acetaminophen 325 Mg Tab) 650 mg PO Q4H PRN PRN Reason: Pain (Mild 1-3) and fever Diphenhydramine HCl (Diphenhydramine 50 Mg/Ml Sdv) 25 mg IVPUSH Q6H PRN PRN Reason: Itching Diphenhydramine HCl (Diphenhydramine 50 Mg/Ml Sdv) 50 mg IVPUSH Q6H PRN PRN Reason: Itching Ephedrine Sulfate (Ephedrine 50 Mg/Ml Sdv) 10 mg IVPUSH ASDIRECTED PRN PRN Reason: Hypotension Oxytocin/Sodium Chloride (Pitocin In Ns 20 Units/1,000 Ml) 20 unit in 1,000 mls @ 6 mls/hr IV TITRATE TONNY; Protocol Last Titration: 04/12/21 19:20 Dose: 9 munits/min, 27 mls/hr Documented by: Penicillin G Potassium 2.5 (millunits/ Sodium Chloride) 50 mls @ 100 mls/hr IV Q4H [facility] Last Admin: 04/12/21 16:18 Dose: 100 mls/hr Documented by: Ropivacaine 200 mg/ Premix 100 mls @ 0 mls/hr EPIDUR ASDIRECTED TONNY Naloxone HCl (Naloxone 0.4 Mg/Ml Sdv) 0.1 mg IVPUSH ASDIRECTED PRN PRN Reason: Oversedation Ondansetron HCl (Ondansetron 4 Mg/2 Ml Sdv) 4 mg IV Q4H PRN PRN Reason: Nausea/Vomiting Sodium Chloride (Sodium Chloride 0.9% 10 Ml Syringe) 10 ml FLUSH ASDIRECTED PRN PRN Reason: Keep Vein Open Discontinued Medications Fentanyl (Fentanyl 100 Mcg/2 Ml Sdv) 100 mcg IVPUSH ONETIME ONE Stop: 04/12/21 12:49 Last Admin: 04/12/21 12:55 Dose: 100 mcg Documented by: Penicillin G Potassium 5 (millunits/ Sodium Chloride) 100 mls @ 100 mls/hr IV ONETIME ONE Stop: 04/12/21 09:29 Last Admin: 04/12/21 08:33 Dose: 100 mls/hr Documented by: Lactated Ringer's (Ringers, Lactated) 1,000 mls @ 999 mls/hr IV .BOLUS ONE Stop: 04/12/21 17:39 Last Admin: 04/12/21 17:00 Dose: 999 mls/hr Documented by: Ropivacaine (Naropin 0.2%) Confirm Administered Dose 100 mls @ as directed .ROUTE .STK-MED ONE Stop: 04/12/21 17:03 - Uterine Contractions Uterine Monitoring Mode: External [place] Contraction Frequency (min): 2-3 Contraction Duration (sec): 70-90 Contraction Intensity: Moderate to Strong Uterine Resting Tone: Soft - Monitoring Monitor Mode: External Ultrasound Heart Rate (FHR) Variability: Moderate (6-25 bmp) Accelerations: Present, 15x15 Decelerations: None Strip Review: Category I - Vaginal Exam Dilation (cm): 5 Effacement (Percent): 90 Station: 0 Cervical Position: Midposition Sterile Vaginal Exam Performed By: Ina Grimm - Labor Progress (Free Text) Labor Progress: 04/12/2021 patient now comfortable with epidural SVE-/0 with a forebag of fluid-AROM educated done-risks and benefits and patient desires AROM AROM for clear fluid completed FHTs category one Contractions every 2-5 minutes Pitocin at 9mu at bedside and supportive Plan- Continue to monitor labor Continue to monitor FHTs Continue Pitocin per protocol Continue PCN G per protocol Continue epidural for pain management Plan and anticipate a vaginal delivery
--- NOTE | 2021-04-12 20:10 | ANES ---
DATE OF SERVICE: 04/12/2021 TIME: 1705. I was called to the Labor and Delivery Unit by Ina Grimm to evaluate Mrs. New for a labor epidural. She is a . She is approximately 3 to 4 cm and in active labor on Pitocin. Risks and benefits of the procedure were explained to the patient. She wished to proceed with labor epidural. TECHNIQUE: She was placed in a sitting position. Her back was prepped x3 with Betadine, 1% lidocaine skin local was used. The epidural was placed at L3-4 using a 17-gauge Tuohy needle in loss of resistance technique. The epidural had very good feel throughout, and the epidural space was easily identified. There was negative CSF, negative blood, and negative paresthesias noted. Therefore, catheter was threaded to 14 cm at the skin. There was negative CSF, negative blood, and negative paresthesias noted at the catheter. Therefore, a 1.5% lidocaine with epinephrine test dose was given. This test dose was negative. The patient's vital signs remained stable. The catheter was then secured with Tegaderm and tape, and the patient was placed in the supine position. A 10 mL bolus of 0.2% ropivacaine was given. The patient got good relief with the bolus, therefore 0.2% ropivacaine drip was started. Her vital signs remained stable throughout the procedure and nurse was with me for the entire procedure. There were no anesthesia complications noted, and we will continue to monitor her throughout her labor. We will continue to monitor her throughout her Labor. Geovani Shah CRNA /[id number]
[2021-04-12] MEDS ORDERED: Lanolin 100% Cream 40 GM Tube TOP ONE (22:51)
[2021-04-12] MEDS ORDERED: Benzocaine 20% Top Spray 56 GM Bottle TOP ONE (22:51)
[2021-04-12] MEDS ORDERED: Witch Hazel Medicated Pads 100/Jar TOP ONE (22:51)
[2021-04-12] MEDS ORDERED: Docusate Sodium 100 MG Cap PO PRN (22:51)
[2021-04-12] MEDS ORDERED: Acetaminophen 325 MG Tab, 50 Tab Bulk Bottle PO PRN (22:51)
[2021-04-12] MEDS ORDERED: Ibuprofen 200 MG Tab, 24 Tab Bulk Bottle PO PRN (22:51)
--- NOTE | 2021-04-12 23:10 | PCM.DEL ---
L & D Note - General Info Date of Service: 04/12/21 Mother's Due Date: 04/24/21 - Delivery Note Labor: Spontaneous, Augmented by Oxytocin Delivery Outcome: Livebirth Infant Delivery Method: Spontaneous Vaginal Delivery-Single Infant Delivery Mode: Spontaneous Presentation: Left Occiput Anterior (FLORIN) Nuchal Cord: None Anesthesia Type: Epidural Episiotomy Type: None Laceration: 1st Degree, Labial Suture size: 3-0 Placenta: Intact, Spontaneous Cord: 3 Vessels Estimated Blood Loss: 300 Resuscitation Needed: No Bowlus: Bulb Syringe, Stimulated, Warmed Score 1 min: 9 Score 5 min: 9 Second Stage Interventions: Reports: Second Nurse Assessed Progress of Descent, Second Nurse Reviewed Contraction Pattern, Second Nurse Reviewed Heart Tones, Encouragement Given, Pushing Effectively, Pushing, McRobert's Position, Pushing, Pulls Own Legs Back Delivery Comments (Free Text/Narrative):: 04/12/2021 35 yo at 38 2/7 gestational weeks delivered a viable male on 04/12/21 @ 2225 in FLORIN position over an intact perineum. Infant was delivered and then placed on a prewarmed blanket on mothers abdomen where he began to pink in color and cry. He was dried and stimulated, then delayed cord clamping was done for approximately 90 seconds then cord was double clamped by CNM and father of infant cut the cord. Three vessel cord noted. Infant was then put more skin to skin with mother. Placenta then came intact and vazquez, EBL 300, Pitocin was ran wide open for expectant management. APGARS-9/9, length-20.5 inches, weight-7lbs 7oz, one small labial abrasion noted, not bleeding not repaired, then a 1st degree labial on patients lefts was repaired in usual fashion, no other lacerations noted of vagina, perineum, cervix, or rectum. now skin to skin with mother in labor and delivery room and all are stable. Stages of labor- 1st [id number] 2nd [id number] 3rd [id number] - General Info Date of Service: 04/12/21 Functional Status: Reports: Pain Controlled - Review of Systems General: Reports: No Symptoms HEENT: Reports: No Symptoms Pulmonary: Reports: No Symptoms Cardiovascular: Reports: No Symptoms Gastrointestinal: Reports: No Symptoms Genitourinary: Reports: No Symptoms Musculoskeletal: Reports: No Symptoms Skin: Reports: No Symptoms Neurological: Reports: No Symptoms Psychiatric: Reports: No Symptoms - Patient Data Vitals - Most Recent: Last Vital Signs Temp 36.3 C 04/12/21 20:30 Pulse 75 04/12/21 20:30 Resp 16 04/12/21 20:30 BP 123/70 04/12/21 20:30 Pulse Ox 100 04/12/21 20:30 Weight - Most Recent: 82.554 kg I&O - Last 24 Hours: Intake & Output 04/12/21 04/12/21 04/13/21 14:59 22:59 06:59 Intake Total 1950 Balance 1950 Lab Results Last 24 Hours: Laboratory Results - last 24 hr 04/12/21 04/12/21 04/12/21 Range/Units 06:36 06:36 08:11 WBC 10.9 (4.5-11.0) K/uL RBC 4.13 (3.30-5.50) M/uL Hgb 12.2 (12.0-15.0) g/dL Hct 36.6 (36.0-48.0) % MCV 89 (80-98) fL MCH 30 (27-31) pg MCHC 33 (32-36) % Plt Count 197 (150-400) K/uL Neut % (Auto) 78.9 H (36-66) % Lymph % (Auto) 12.7 L (24-44) % [place] % (Auto) 7.2 H (2-6) % Eos % (Auto) 0.6 L (2-4) % Baso % (Auto) 0.6 (0-1) % Urine Color Yellow (YELLOW) Urine Appearance Clear (CLEAR) Urine pH 5.5 (5.0-8.0) Ur Specific [place] 1.015 (1.008-1.030) Urine Protein Negative (NEGATIVE) mg/dL Urine Glucose (UA) Negative (NEGATIVE) mg/dL Urine Ketones Negative (NEGATIVE) mg/dL Urine Occult Blood Moderate H (NEGATIVE) Urine Nitrite Negative (NEGATIVE) Urine Bilirubin Negative (NEGATIVE) Urine Urobilinogen 0.2 (0.2-1.0) EU/dL Ur Leukocyte Esterase Negative (NEGATIVE) Urine RBC 0-5 (0-5) Urine WBC 0-5 (0-5) Ur Epithelial Cells Moderate Amorphous Sediment Not seen Urine Bacteria Rare Urine Mucus Not seen Membrane Rupture Positive H (NEGATIVE) Med Orders - Current: Current Medications Acetaminophen (Acetaminophen 325 Mg Tab) 650 mg PO Q4H PRN PRN Reason: Pain (Mild 1-3) and fever Acetaminophen (Acetaminophen 325 Mg Tab, 50 Tab Bulk Bottle) 0 mg PO Q4H PRN PRN Reason: Pain Diphenhydramine HCl (Diphenhydramine 50 Mg/Ml Sdv) 25 mg IVPUSH Q6H PRN PRN Reason: Itching Diphenhydramine HCl (Diphenhydramine 50 Mg/Ml Sdv) 50 mg IVPUSH Q6H PRN PRN Reason: Itching Docusate Sodium (Docusate Sodium 100 Mg Cap) 100 mg PO BID PRN PRN Reason: Constipation Ephedrine Sulfate (Ephedrine 50 Mg/Ml Sdv) 10 mg IVPUSH ASDIRECTED PRN PRN Reason: Hypotension Oxytocin/Sodium Chloride (Pitocin In Ns 20 Units/1,000 Ml) 20 unit in 1,000 mls @ 6 mls/hr IV TITRATE [facility]; Protocol Last Titration: 04/12/21 20:30 Dose: 13 munits/min, 39 mls/hr Documented by: Penicillin G Potassium 2.5 (millunits/ Sodium Chloride) 50 mls @ 100 mls/hr IV Q4H [facility] Last Admin: 04/12/21 19:56 Dose: 100 mls/hr Documented by: Ropivacaine 200 mg/ Premix 100 mls @ 0 mls/hr EPIDUR ASDIRECTED TONNY Ibuprofen (Ibuprofen 200 Mg Tab, 24 Tab Bulk Bottle) 600 mg PO Q6H PRN PRN Reason: Pain Naloxone HCl (Naloxone 0.4 Mg/Ml Sdv) 0.1 mg IVPUSH ASDIRECTED PRN PRN Reason: Oversedation Ondansetron HCl (Ondansetron 4 Mg/2 Ml Sdv) 4 mg IV Q4H PRN PRN Reason: Nausea/Vomiting Sodium Chloride (Sodium Chloride 0.9% 10 Ml Syringe) 10 ml FLUSH ASDIRECTED PRN PRN Reason: Keep Vein Open Discontinued Medications Benzocaine (Benzocaine 20% Top [place] 56 Gm Bottle) 0 gm TOP ONETIME ONE Stop: 04/12/21 22:52 Emollient Ointment (Lanolin 100% Cream 40 Gm Tube) 1 gm TOP ONETIME ONE Stop: 04/12/21 22:52 Fentanyl (Fentanyl 100 Mcg/2 Ml Sdv) 100 mcg IVPUSH ONETIME ONE Stop: 04/12/21 12:49 Last Admin: 04/12/21 12:55 Dose: 100 mcg Documented by: Penicillin G Potassium 5 (millunits/ Sodium Chloride) 100 mls @ 100 mls/hr IV ONETIME ONE Stop: 04/12/21 09:29 Last Admin: 04/12/21 08:33 Dose: 100 mls/hr Documented by: Lactated Ringer's (Ringers, Lactated) 1,000 mls @ 999 mls/hr IV .BOLUS ONE Stop: 04/12/21 17:39 Last Admin: 04/12/21 17:00 Dose: 999 mls/hr Documented by: Ropivacaine (Naropin 0.2%) Confirm Administered Dose 100 mls @ as directed .ROUTE .STK-MED ONE Stop: 04/12/21 17:03 Witch Ermelinda (Witch Ermelinda Medicated Pads 100/Jar) 1 pad TOP ONETIME ONE Stop: 04/12/21 22:52 - Exam Urinary Catheter Total Time: 0Days 3Hours General: Alert, Oriented, Cooperative HEENT: Pupils Equal, Pupils Reactive, EOMI, Mucous Membr. Moist/[place] Neck: Supple Lungs: Clear to Auscultation, Normal Respiratory Effort Cardiovascular: Regular Rate, Regular Rhythm GI/Abdominal Exam: Normal Bowel Sounds, Soft, Non-Tender, No Organomegaly, No Distention, No Abnormal Bruit, No Mass, Pelvis Stable (Female) Exam: Normal External Exam, Normal Speculum Exam, Normal Bimanual Exam, Enlarged Uterus, Vaginal Bleeding Back Exam: Normal Inspection, Full Range of Motion Extremities: Normal Inspection, Normal Range of Motion, Non-Tender, No Pedal Edema, Normal Capillary Refill Skin: Warm, Dry, Intact Wound/Incisions: Healing Well Neurological: No New Focal Deficit Psy/Mental Status: Alert, Normal Affect, Normal Mood - Problem List & Annotations (1) SNOMED Code(s): 01527621 Code(s): Z34.90 - ENCNTR FOR SUPRVSN OF NORMAL , UNSP, UNSP TRIMESTER Status: Acute Current Visit: Yes Qualifiers: Weeks of gestation: 38 weeks Qualified Code(s): Z3A.38 - 38 weeks gestation of (2) SROM (spontaneous rupture of membranes) SNOMED Code(s): 811197979 Code(s): KHF2456 - Status: Acute Current Visit: Yes (3) Positive GBS test SNOMED Code(s): 510800351, 253891594 Code(s): B95.1 - STREPTOCOCCUS, GROUP B, [facility] Status: Acute Current Visit: Yes (4) Raynaud's phenomenon (by history or observed) SNOMED Code(s): 883393368 Code(s): I73.00 - RAYNAUD'S SYNDROME WITHOUT GANGRENE Status: Chronic Current Visit: No - Problem List Review Problem List Initiated/Reviewed/Updated: Yes - My Orders Last 24 Hours: My Active Orders 04/12/21 08:11 Patient Status [ADT] Routine Ambulate [RC] PER UNIT ROUTINE Communication Order [RC] ASDIRECTED May Shower [RC] ASDIRECTED Notify Provider Vital Signs [RC] PRN Notify Provider [RC] PRN Up ad Jerry [RC] ASDIRECTED Acetaminophen [TylenoL] 650 mg PO Q4H PRN Ondansetron [Zofran] 4 mg IV Q4H PRN Sodium Chloride 0.9% [Saline Flush] 10 ml FLUSH ASDIRECTED PRN DVT/VTE Prophylaxis Reflex [OM.PC] Routine Saline Lock Insert [OM.PC] Routine Resuscitation Status Routine 04/12/21 08:14 VTE/DVT Education [RC] Click to Edit 04/12/21 08:30 Oxytocin/Normal Saline [Pitocin in NS 20 Units/1,000 ML] 20 unit in 1,000 ml IV TITRATE 04/12/21 12:30 Penicillin G Potassium [Pfizerpen] 2.5 millunits Sodium Chloride 0.9% [Normal Saline] 50 ml IV Q4H 04/12/21 16:39 Naloxone [Narcan] 0.1 mg IVPUSH ASDIRECTED PRN diphenhydrAMINE [Benadryl] 25 mg IVPUSH Q6H PRN diphenhydrAMINE [Benadryl] 50 mg IVPUSH Q6H PRN ePHEDrine [ePHEDrine sulfate] 10 mg IVPUSH ASDIRECTED PRN 04/12/21 16:40 Communication Order [RC] ASDIRECTED Communication Order [RC] ROUTINE Communication Order [RC] ROUTINE Communication Order [RC] ROUTINE Local Anesthetic Infusion Pump [RC] ASDIRECTED Oxygen Therapy [RC] ASDIRECTED PCEA Epidural [RC] ASDIRECTED Peripheral IV Care [RC] . DIRECTED Pulse Oximetry [RC] ASDIRECTED Urinary Catheter Assessment [RC] ASDIRECTED Vital Signs [RC] PER UNIT ROUTINE Epidural Catheter Management [OM.PC] Routine Epidural Catheter Management [OM.PC] Urgent Peripheral IV Insertion Pediatric [OM.PC] Routine 04/12/21 16:45 Insert Urinary Catheter [OM.PC] ASDIRECTED Ropivacaine [Naropin 0.2%] 200 mg Premix Bag 1 bag EPIDUR ASDIRECTED 04/12/21 22:51 Consult to Research Interviewer [CONS] Routine Acetaminophen [Tylenol Bulk Bottle] See Dose Instructions PO Q4H PRN Docusate Sodium [Colace] 100 mg PO BID PRN Ibuprofen [Motrin Bulk Bottle] 600 mg PO Q6H PRN Assess Lochia [WOMSER] Per Unit Routine Assess Uterine Involution [WOMSER] Per Unit Routine 04/12/21 22:52 Patient Status [ADT] Routine Vital Signs [RC] PFP Ice Therapy [OM.PC] Per Unit Routine Perineal Care [OM.PC] Per Unit Routine Sitz Bath [OM.PC] Per Unit Routine 04/13/21 06:00 CBC WITH AUTO DIFF [HEME] Routine - Assessment Assessment:: 04/12/2021 without complications GBS positive received antibiotics small labial laceration repaired - Plan Plan:: 04/12/2021 35 yo here at 38 2/7 gestational weeks with SROM at 0400 on 04/12/2021 Labs-A positive, Hep B neg, Hep C neg, HIV neg, RPR nonreactive, Rubella Immune, GBS positive SVE-2/80/-2 FHT category one Contractions every 2-5 on admit, increasing now Amnisure positive at bedside and supportive Plan- Monitor labor Monitor FHTs Patient may be up ad jerry Patient may tub Patient may eat a regular diet PCN G for GBS positive status Pain control per patient request If no change will augment with Pitocin Plan and anticipate a vaginal delivery 04/12/2021 Routine cares Encourage and support Plan discharge in 24-48 hours
[2021-04-13] MEDS: Penicillin G Potassium 2.5 MILLUNITS in Sodium Chloride 0.9% 50 ML IV SCH (01:46)
[2021-04-13] MEDS ORDERED: Benzocaine 20% Top Spray 56 GM Bottle TOP PRN (07:49)
[2021-04-13] MEDS ORDERED: Lanolin 100% Cream 40 GM Tube TOP PRN (07:49)
[2021-04-13] MEDS ORDERED: Witch Hazel Medicated Pads 100/Jar TOP PRN (07:50)
--- NOTE | 2021-04-13 09:27 | PCM.PNPP ---
- General Info Date of Service: 04/13/21 Functional Status: Reports: Pain Controlled - Review of Systems General: Reports: No Symptoms HEENT: Reports: No Symptoms Pulmonary: Reports: No Symptoms Cardiovascular: Reports: No Symptoms Gastrointestinal: Reports: No Symptoms Genitourinary: Reports: No Symptoms Musculoskeletal: Reports: No Symptoms Skin: Reports: No Symptoms Neurological: Reports: No Symptoms Psychiatric: Reports: No Symptoms - Patient Data Vital Signs - Most Recent: Last Vital Signs Temp 35.1 C L 04/13/21 07:18 Pulse 85 04/13/21 07:18 Resp 16 04/13/21 07:18 BP 102/62 04/13/21 07:18 Pulse Ox 96 04/13/21 07:18 Weight - Most Recent: 82.554 kg I&O - Last 24 Hours: Intake & Output 04/12/21 04/13/21 04/13/21 22:59 06:59 14:59 Intake Total 1950 1048 Output Total 700 Balance 1950 348 Lab Results - Last 24 Hours: Laboratory Results - last 24 hr 04/13/21 Range/Units 04:00 WBC 14.1 H (4.5-11.0) K/uL RBC 3.74 (3.30-5.50) M/uL Hgb 11.0 L (12.0-15.0) g/dL Hct 33.3 L (36.0-48.0) % MCV 89 (80-98) fL MCH 29 (27-31) pg MCHC 33 (32-36) % Plt Count 167 (150-400) K/uL Neut % (Auto) 79.8 H (36-66) % Lymph % (Auto) 11.0 L (24-44) % Rich % (Auto) 8.4 H (2-6) % Eos % (Auto) 0.6 L (2-4) % Baso % (Auto) 0.2 (0-1) % Med Orders - Current: Current Medications Acetaminophen (Acetaminophen 325 Mg Tab, 50 Tab Bulk Bottle) 0 mg PO Q4H PRN PRN Reason: Pain Last Admin: 04/13/21 00:35 Dose: 650 mg Documented by: Benzocaine (Benzocaine 20% Top [place]cd[place] 56 Gm Bottle) 0 gm TOP Q4H PRN PRN Reason: PAIN Diphenhydramine HCl (Diphenhydramine 50 Mg/Ml Sdv) 25 mg IVPUSH Q6H PRN PRN Reason: Itching Diphenhydramine HCl (Diphenhydramine 50 Mg/Ml Sdv) 50 mg IVPUSH Q6H PRN PRN Reason: Itching Docusate Sodium (Docusate Sodium 100 Mg Cap) 100 mg PO BID PRN PRN Reason: Constipation Emollient Ointment (Lanolin 100% Cream 40 Gm Tube) 0 gm TOP ASDIRECTED PRN PRN Reason: PAIN Ephedrine Sulfate (Ephedrine 50 Mg/Ml Sdv) 10 mg IVPUSH ASDIRECTED PRN PRN Reason: Hypotension Oxytocin/Sodium Chloride (Pitocin In Ns 20 Units/1,000 Ml) 20 unit in 1,000 mls @ 6 mls/hr IV TITRATE TONNY; Protocol Last Titration: 04/12/21 20:30 Dose: 13 munits/min, 39 mls/hr Documented by: Ropivacaine 200 mg/ Premix 100 mls @ 0 mls/hr EPIDUR ASDIRECTED TONNY Ibuprofen (Ibuprofen 200 Mg Tab, 24 Tab Bulk Bottle) 600 mg PO Q6H PRN PRN Reason: Pain Last Admin: 04/13/21 00:35 Dose: 600 mg Documented by: Naloxone HCl (Naloxone 0.4 Mg/Ml Sdv) 0.1 mg IVPUSH ASDIRECTED PRN PRN Reason: Oversedation Ondansetron HCl (Ondansetron 4 Mg/2 Ml Sdv) 4 mg IV Q4H PRN PRN Reason: Nausea/Vomiting Sodium Chloride (Sodium Chloride 0.9% 10 Ml Syringe) 10 ml FLUSH ASDIRECTED PRN PRN Reason: Keep Vein Open Witch Lynne (Witch Lynne Medicated Pads 100/Jar) 1 pad TOP ASDIRECTED PRN PRN Reason: PAIN Discontinued Medications Benzocaine (Benzocaine 20% Top [place]cd[place] 56 Gm Bottle) 0 gm TOP ONETIME ONE Stop: 04/12/21 22:52 Last Admin: 04/13/21 05:37 Dose: 1 applic Documented by: Emollient Ointment (Lanolin 100% Cream 40 Gm Tube) 1 gm TOP ONETIME ONE Stop: 04/12/21 22:52 Last Admin: 04/13/21 05:36 Dose: 1 applic Documented by: Fentanyl (Fentanyl 100 Mcg/2 Ml Sdv) 100 mcg IVPUSH ONETIME ONE Stop: 04/12/21 12:49 Last Admin: 04/12/21 12:55 Dose: 100 mcg Documented by: Penicillin G Potassium 5 (millunits/ Sodium Chloride) 100 mls @ 100 mls/hr IV ONETIME ONE Stop: 04/12/21 09:29 Last Admin: 04/12/21 08:33 Dose: 100 mls/hr Documented by: Penicillin G Potassium 2.5 (millunits/ Sodium Chloride) 50 mls @ 100 mls/hr IV Q4H TONNY Last Admin: 04/13/21 01:46 Dose: Not Given Documented by: Lactated Ringer's (Ringers, Lactated) 1,000 mls @ 999 mls/hr IV .BOLUS ONE Stop: 04/12/21 17:39 Last Admin: 04/12/21 17:00 Dose: 999 mls/hr Documented by: Ropivacaine (Naropin 0.2%) Confirm Administered Dose 100 mls @ as directed .ROUTE .STK-MED ONE Stop: 04/12/21 17:03 Witch Lynne (Witch Lynne Medicated Pads 100/Jar) 1 pad TOP ONETIME ONE Stop: 04/12/21 22:52 Last Admin: 04/13/21 05:36 Dose: 1 applic Documented by: - Interaction Disposition, : in Room with Family Infant Interaction: Holding Infant Infant Feeding: Attempted ; Nursed Fair/Poor, Continues to Breastfeed, Encouraged to Breastfeed Support Person: - Recovery Exam Fundal Tone: Firm Fundal Level: 1 Fingerbreadths Below Umbilicus Fundal Placement: Midline Lochia Amount: Moderate Lochia Color: Rubra/Red Perineum Description: Intact, Minimal Bruising/Swelling Episiotomy/Laceration: Approximated Bladder Status: Voiding Urinary Elimination: Voided - Exam General: Alert, Oriented HEENT: Pupils Equal Neck: Supple Lungs: Clear to Auscultation, Normal Respiratory Effort Cardiovascular: Regular Rate, Regular Rhythm GI/Abdominal Exam: Normal Bowel Sounds, Soft, Non-Tender, No Organomegaly, No Distention, No Abnormal Bruit, No Mass, Pelvis Stable Extremities: Normal Inspection, Normal Range of Motion, Non-Tender, No Pedal Edema, Normal Capillary Refill Skin: Warm, Dry, Intact Wound/Incisions: Healing Well Neurological: No New Focal Deficit Psy/Mental Status: Alert, Normal Affect, Normal Mood - Problem List & Annotations (1) SNOMED Code(s): 34627160 Code(s): Z34.90 - ENCNTR FOR SUPRVSN OF NORMAL , UNSP, UNSP TRIMESTER Status: Acute Current Visit: Yes Qualifiers: Weeks of gestation: 38 weeks Qualified Code(s): Z3A.38 - 38 weeks gestation of (2) SROM (spontaneous rupture of membranes) SNOMED Code(s): 592741716 Code(s): JBW6432 - Status: Acute Current Visit: Yes (3) Positive GBS test SNOMED Code(s): 696847767, 474531811 Code(s): B95.1 - STREPTOCOCCUS, GROUP B, CAUSING DISEASES CLASSD [id number] Status: Acute Current Visit: Yes (4) Raynaud's phenomenon (by history or observed) SNOMED Code(s): 050659678 Code(s): I73.00 - RAYNAUD'S SYNDROME WITHOUT GANGRENE Status: Chronic Current Visit: No (5) Breastfed infant SNOMED Code(s): 002976966 Code(s): Z78.9 - OTHER SPECIFIED HEALTH STATUS Status: Acute Current Visit: Yes (6) Laceration of labia minora SNOMED Code(s): 114745089 Code(s): S31.41XA - LACERATION W/O FOREIGN BODY OF VAGINA AND VULVA, INIT ENCNTR Status: Acute Current Visit: Yes Qualifiers: Encounter type: initial encounter Qualified Code(s): S31.41XA - Laceration without foreign body of vagina and vulva, initial encounter (7) Vaginal delivery SNOMED Code(s): 953523426 Code(s): O80 - ENCOUNTER FOR FULL-TERM UNCOMPLICATED DELIVERY Status: Acute Current Visit: Yes - Problem List Review Problem List Initiated/Reviewed/Updated: Yes - My Orders Last 24 Hours: My Active Orders 04/12/21 08:30 Oxytocin/Normal Saline [Pitocin in NS 20 Units/1,000 ML] 20 unit in 1,000 ml IV TITRATE 04/12/21 16:39 Naloxone [Narcan] 0.1 mg IVPUSH ASDIRECTED PRN diphenhydrAMINE [Benadryl] 25 mg IVPUSH Q6H PRN diphenhydrAMINE [Benadryl] 50 mg IVPUSH Q6H PRN ePHEDrine [ePHEDrine sulfate] 10 mg IVPUSH ASDIRECTED PRN 04/12/21 16:40 Oxygen Therapy [RC] ASDIRECTED Peripheral IV Care [RC] . DIRECTED Epidural Catheter Management [OM.PC] Routine Epidural Catheter Management [OM.PC] Urgent Peripheral IV Insertion Pediatric [OM.PC] Routine 04/12/21 16:45 Insert Urinary Catheter [OM.PC] ASDIRECTED Ropivacaine [Naropin 0.2%] 200 mg Premix Bag 1 bag EPIDUR ASDIRECTED 04/12/21 22:51 Consult to Barrel Coater [CONS] Routine Acetaminophen [Tylenol Bulk Bottle] See Dose Instructions PO Q4H PRN Docusate Sodium [Colace] 100 mg PO BID PRN Ibuprofen [Motrin Bulk Bottle] 600 mg PO Q6H PRN Assess Lochia [WOMSER] Per Unit Routine Assess Uterine Involution [WOMSER] Per Unit Routine 04/12/21 22:52 Patient Status [ADT] Routine Vital Signs [RC] PFP Ice Therapy [OM.PC] Per Unit Routine Perineal Care [OM.PC] Per Unit Routine Sitz Bath [OM.PC] Per Unit Routine 04/13/21 07:49 Benzocaine [Dcvh-T-Kfvfvgf 20% Mcdaniel] 0 gm TOP Q4H PRN Lanolin [Lansinoh HPA] 0 gm TOP ASDIRECTED PRN 04/13/21 07:50 witch Lynne [Tucks] 1 pad TOP ASDIRECTED PRN 04/13/21 Breakfast Regular Diet [DIET] - Assessment Assessment:: 04/12/2021 without complications GBS positive received antibiotics small labial laceration repaired 04/13/2021 without complications Day One GBS positive received antibiotics in labor small labial laceration repaired, slightly swollen today fair-poor Fundus firm and bleeding decreasing Hgb 11.0 today Voiding and passing gas - Plan Plan:: 04/12/2021 35 yo here at 38 2/7 gestational weeks with SROM at 0400 on 04/12/2021 Labs-A positive, Hep B neg, Hep C neg, HIV neg, RPR nonreactive, Rubella Immune, GBS positive SVE-2/80/-2 FHT category one Contractions every 2-5 on admit, increasing now Amnisure positive at bedside and supportive Plan- Monitor labor Monitor FHTs Patient may be up ad jerry Patient may tub Patient may eat a regular diet PCN G for GBS positive status Pain control per patient request If no change will augment with Pitocin Plan and anticipate a vaginal delivery 04/12/2021 Routine cares Encourage and support Plan discharge in 24-48 hours 04/13/2021 Continue routine cares Continue to encourage and support to see today Plan discharge tomorrow evening if going better
--- NOTE | 2021-04-14 07:04 | PCM.PNPP ---
- General Info Date of Service: 04/14/21 Functional Status: Reports: Pain Controlled - Review of Systems General: Reports: No Symptoms HEENT: Reports: No Symptoms Pulmonary: Reports: No Symptoms Cardiovascular: Reports: No Symptoms Gastrointestinal: Reports: No Symptoms Genitourinary: Reports: No Symptoms Musculoskeletal: Reports: No Symptoms Skin: Reports: No Symptoms Neurological: Reports: No Symptoms Psychiatric: Reports: No Symptoms - General Info Date of Service: 04/14/21 - Patient Data Vital Signs - Most Recent: Last Vital Signs Temp 35.4 C L 04/14/21 04:16 Pulse 79 04/14/21 04:16 Resp 16 04/14/21 04:16 BP 120/79 04/14/21 04:16 Pulse Ox 97 04/14/21 04:16 Weight - Most Recent: 82.554 kg Med Orders - Current: Current Medications Acetaminophen (Acetaminophen 325 Mg Tab, 50 Tab Bulk Bottle) 0 mg PO Q4H PRN PRN Reason: Pain Last Admin: 04/13/21 00:35 Dose: 650 mg Documented by: Benzocaine (Benzocaine 20% Top [place] 56 Gm Bottle) 0 gm TOP Q4H PRN PRN Reason: PAIN Last Admin: 04/13/21 10:30 Dose: 1 bottle Documented by: Diphenhydramine HCl (Diphenhydramine 50 Mg/Ml Sdv) 25 mg IVPUSH Q6H PRN PRN Reason: Itching Diphenhydramine HCl (Diphenhydramine 50 Mg/Ml Sdv) 50 mg IVPUSH Q6H PRN PRN Reason: Itching Docusate Sodium (Docusate Sodium 100 Mg Cap) 100 mg PO BID PRN PRN Reason: Constipation Last Admin: 04/13/21 10:31 Dose: 100 mg Documented by: Emollient Ointment (Lanolin 100% Cream 40 Gm Tube) 0 gm TOP ASDIRECTED PRN PRN Reason: PAIN Last Admin: 04/13/21 10:30 Dose: 1 bottle Documented by: Ephedrine Sulfate (Ephedrine 50 Mg/Ml Sdv) 10 mg IVPUSH ASDIRECTED PRN PRN Reason: Hypotension Oxytocin/Sodium Chloride (Pitocin In Ns 20 Units/1,000 Ml) 20 unit in 1,000 mls @ 6 mls/hr IV TITRATE TONNY; Protocol Last Titration: 04/12/21 20:30 Dose: 13 munits/min, 39 mls/hr Documented by: Ropivacaine 200 mg/ Premix 100 mls @ 0 mls/hr EPIDUR ASDIRECTED TONNY Ibuprofen (Ibuprofen 200 Mg Tab, 24 Tab Bulk Bottle) 600 mg PO Q6H PRN PRN Reason: Pain Last Admin: 04/13/21 00:35 Dose: 600 mg Documented by: Naloxone HCl (Naloxone 0.4 Mg/Ml Sdv) 0.1 mg IVPUSH ASDIRECTED PRN PRN Reason: Oversedation Ondansetron HCl (Ondansetron 4 Mg/2 Ml Sdv) 4 mg IV Q4H PRN PRN Reason: Nausea/Vomiting Sodium Chloride (Sodium Chloride 0.9% 10 Ml Syringe) 10 ml FLUSH ASDIRECTED PRN PRN Reason: Keep Vein Open Witch Ermelinda (Witch Ermelinda Medicated Pads 100/Jar) 1 pad TOP ASDIRECTED PRN PRN Reason: PAIN Last Admin: 04/13/21 10:29 Dose: 1 bottle Documented by: Discontinued Medications Benzocaine (Benzocaine 20% Top [place] 56 Gm Bottle) 0 gm TOP ONETIME ONE Stop: 04/12/21 22:52 Last Admin: 04/13/21 05:37 Dose: 1 applic Documented by: Emollient Ointment (Lanolin 100% Cream 40 Gm Tube) 1 gm TOP ONETIME ONE Stop: 04/12/21 22:52 Last Admin: 04/13/21 05:36 Dose: 1 applic Documented by: Fentanyl (Fentanyl 100 Mcg/2 Ml Sdv) 100 mcg IVPUSH ONETIME ONE Stop: 04/12/21 12:49 Last Admin: 04/12/21 12:55 Dose: 100 mcg Documented by: Penicillin G Potassium 5 (millunits/ Sodium Chloride) 100 mls @ 100 mls/hr IV ONETIME ONE Stop: 04/12/21 09:29 Last Admin: 04/12/21 08:33 Dose: 100 mls/hr Documented by: Penicillin G Potassium 2.5 (millunits/ Sodium Chloride) 50 mls @ 100 mls/hr IV Q4H [facility] Last Admin: 04/13/21 01:46 Dose: Not Given Documented by: Lactated Ringer's (Ringers, Lactated) 1,000 mls @ 999 mls/hr IV .BOLUS ONE Stop: 04/12/21 17:39 Last Admin: 04/12/21 17:00 Dose: 999 mls/hr Documented by: Ropivacaine (Naropin 0.2%) Confirm Administered Dose 100 mls @ as directed .ROUTE .STK-MED ONE Stop: 04/12/21 17:03 Witch Ermelinda (Witch Ermelinda Medicated Pads 100/Jar) 1 pad TOP ONETIME ONE Stop: 04/12/21 22:52 Last Admin: 04/13/21 05:36 Dose: 1 applic Documented by: - Interaction Disposition, : [place] in Room with Family Interaction: Holding Infant Feeding: Attempted ; Nursed Fair/Poor, Continues to Breastfeed, Encouraged to Breastfeed Support Person: - Recovery Exam Fundal Tone: Firm Fundal Level: 2 Fingerbreadths Below Umbilicus Fundal Placement: Midline Lochia Amount: Small Lochia Color: Rubra/Red Perineum Description: Intact, Minimal Bruising/Swelling Episiotomy/Laceration: Approximated Bladder Status: Voiding Urinary Elimination: Voided - Exam General: Alert, Oriented HEENT: Pupils Equal Neck: Supple Lungs: Clear to Auscultation, Normal Respiratory Effort Cardiovascular: Regular Rate, Regular Rhythm GI/Abdominal Exam: Normal Bowel Sounds, Soft, Non-Tender, No Organomegaly, No Distention, No Abnormal Bruit, No Mass, Pelvis Stable Extremities: Normal Inspection, Normal Range of Motion, Non-Tender, No Pedal Edema, Normal Capillary Refill Skin: Warm, Dry, Intact Wound/Incisions: Healing Well Neurological: No New Focal Deficit Psy/Mental Status: Alert, Normal Affect, Normal Mood - Problem List & Annotations (1) SNOMED Code(s): 31981522 Code(s): Z34.90 - ENCNTR FOR SUPRVSN OF NORMAL , UNSP, UNSP TRIMESTER Status: Acute Current Visit: Yes Qualifiers: Weeks of gestation: 38 weeks Qualified Code(s): Z3A.38 - 38 weeks gestation of (2) SROM (spontaneous rupture of membranes) SNOMED Code(s): 381361650 Code(s): UJQ5295 - Status: Acute Current Visit: Yes (3) Positive GBS test SNOMED Code(s): 751570064, 207721866 Code(s): B95.1 - STREPTOCOCCUS, GROUP B, CAUSING DISEASES CLASSD [id number] Status: Acute Current Visit: Yes (4) Raynaud's phenomenon (by history or observed) SNOMED Code(s): 372387575 Code(s): I73.00 - RAYNAUD'S SYNDROME WITHOUT GANGRENE Status: Chronic Current Visit: No (5) Breastfed infant SNOMED Code(s): 305631814 Code(s): Z78.9 - OTHER SPECIFIED HEALTH STATUS Status: Acute Current Visit: Yes (6) Laceration of labia minora SNOMED Code(s): 585081192 Code(s): S31.41XA - LACERATION W/O FOREIGN BODY OF VAGINA AND VULVA, INIT ENCNTR Status: Acute Current Visit: Yes Qualifiers: Encounter type: initial encounter Qualified Code(s): S31.41XA - Laceration without foreign body of vagina and vulva, initial encounter (7) Vaginal delivery SNOMED Code(s): 693275265 Code(s): O80 - ENCOUNTER FOR FULL-TERM UNCOMPLICATED DELIVERY Status: Acute Current Visit: Yes - Problem List Review Problem List Initiated/Reviewed/Updated: Yes - My Orders Last 24 Hours: My Active Orders 04/13/21 07:49 Benzocaine [Mqpj-A-Ruvanxm 20% [place]] 0 gm TOP Q4H PRN Lanolin [Lansinoh HPA] 0 gm TOP ASDIRECTED PRN 04/13/21 07:50 witch Ermelinda [Tucks] 1 pad TOP ASDIRECTED PRN 04/13/21 Breakfast Regular Diet [DIET] - Assessment Assessment:: 04/12/2021 without complications GBS positive received antibiotics small labial laceration repaired 04/13/2021 without complications Day One GBS positive received antibiotics in labor small labial laceration repaired, slightly swollen today fair-poor Fundus firm and bleeding decreasing Hgb 11.0 today Voiding and passing gas 04/14/2021 without complications Day Two GBS positive received antibiotics in labor small labial laceration repaired, slightly swollen today better Fundus firm and bleeding decreasing Voiding and passing gas Desires discharge home tonight - Plan Plan:: 04/12/2021 35 yo here at 38 2/7 gestational weeks with SROM at 0400 on 04/12/2021 Labs-A positive, Hep B neg, Hep C neg, HIV neg, RPR nonreactive, Rubella Immune, GBS positive SVE-2/80/-2 FHT category one Contractions every 2-5 on admit, increasing now Amnisure positive at bedside and supportive Plan- Monitor labor Monitor FHTs Patient may be up ad jerry Patient may tub Patient may eat a regular diet PCN G for GBS positive status Pain control per patient request If no change will augment with Pitocin Plan and anticipate a vaginal delivery 04/12/2021 Routine cares Encourage and support Plan discharge in 24-48 hours 04/13/2021 Continue routine cares Continue to encourage and support to see today Plan discharge tomorrow evening if going better 04/14/2021 Continue routine cares Continue to encourage and support to see before discharge Discharge home today To see Deborah in six weeks for visit
== END 2021-04-14 13:55 | disposition home or self-care (01) | DRG 560 ==
LOC: JP.OBCHECK 06:27 → JP.OB 08:07 → OBSVTOIN 10:25 → JP.OB 10:25 → JP.MS 04-13 01:00
PROVIDERS: ADMIT Advanced Practice Midwife; ATTEND Advanced Practice Midwife
PROC: 10E0XZZ Delivery of Products of Conception, External Approach (ICD-10-PCS; principal; 2021-04-12)
PROC: 0HQ9XZZ Repair Perineum Skin, External Approach (ICD-10-PCS; 2021-04-12)
PROC: 3E0R3BZ Introduction of Anesthetic Agent into Spinal Canal, Percutaneous Approach (ICD-10-PCS; 2021-04-12)
PROC: 10907ZC Drainage of Amniotic Fluid, Therapeutic from Products of Conception, Via Natural or Artificial Opening (ICD-10-PCS; 2021-04-12)
PROC: 4A1HXCZ Monitoring of Products of Conception, Cardiac Rate, External Approach (ICD-10-PCS; 2021-04-12)
DX: O99.824 Streptococcus B carrier state complicating childbirth (principal); O70.0 First degree perineal laceration during delivery; Z3A.38 38 weeks gestation of pregnancy; Z37.0 Single live birth
CPT/HCPCS: 36415; 51702; 81001; 84112; 85025; 99211; A9270-GY; J2540; J2590; J2795; J3010; J7120